=== PATIENT | male | born 1940 | race Caucasian/White ===

== ENCOUNTER 2024-01-19 19:08 | Emergency (ER) | payer MEDICARE, OTHER, SELFPAY ==
[2024-01-19 19:08] VITALS: BMI 27.6
[2024-01-19 19:18] VITALS: BP 150/77
[2024-01-19 19:35] LABS: % Basophils 0.8 % (0-2); % Eosinophils 3.9 % (0-6); % Immature Granulocytes 0.2 % (0-0.5); % Lymphocytes 28.4 % (20.5-51.1); % Monocytes 14.7 % (1.7-9.3); Absolute Basophils 0.1 10^3/uL (0-0.2); Absolute Eosinophils 0.2 10^3/uL (0-0.7); Absolute Lymphocytes 1.8 10^3/uL (1.2-3.4); Absolute Monocytes 0.9 10^3/uL (0.1-0.6); Absolute Neutrophils 3.2 10^3/uL (1.4-6.5); Hematocrit 43.5 % (39.0-52.0); Hemoglobin 14.6 g/dL (13.0-18.0); Mean Corp Hgb Conc. 33.6 g/dL (33.0-37.0); Mean Corpuscular Hgb 27.3 pg (27.0-31.0); Mean Corpuscular Volume 81.5 fL (80.0-94.0); Mean Platelet Volume 10.8 fL (7.4-10.4); Nucleated Red Blood Cells % 0 % (-); Platelet Count 153 10^3/uL (130-400); Red Blood Cell Count 5.34 10^6/uL (4.70-6.10); Red Cell Dist. Width 14.6 % (11.5-14.5); White Blood Cell Count 6.2 10^3/uL (4.8-10.8)
[2024-01-19 19:50] LABS: ALT (SGPT) 18 U/L (0-50); AST (SGOT) 25 U/L (17-59); Albumin 4.5 g/dl (3.5-5.0); Alkaline Phosphatase 62 U/L (38-126); Blood Urea Nitrogen 26 mg/dl (9-20); Calcium 9.3 mg/dl (8.4-10.2); Carbon Dioxide 27 mmol/L (22-30); Chloride 103 mmol/L (98-107); Glucose 87 mg/dl (70-99); Potassium 4.8 mmol/L (3.5-5.1); Sodium 136 mmol/L (135-145); Total Protein 7.1 g/dl (6.3-8.2); eGFR > 60.00
[2024-01-19 20:07] LABS: Troponin I < 0.012 ng/ml
--- NOTE | 2024-01-19 20:27 | ED.GENMED ---
History of Present Illness
General
Chief Complaint: Chest Pain
Time Seen by Provider: 01/19/24 20:27
History of Present Illness
History of Present Illness:
HPI: The patient presents with chest pain over the past 24 hours. It does not worsen with exertion. Is described as an ache. He never had a pressure or squeezing sensation. He was never diaphoretic. He reports no shortness of breath. He
initially was concerned that it could be his heart but more recently feels that is more likely related to his heartburn. He states with taking his pantoprazole. In the past he was recommended to increase the pantoprazole dosing but he did not.
His passenger relations representative is through [facility]. He had stents placed about 5 or 6 years ago and thinks he had chest discomfort at that time but this does not feel anything like he had at that time.
EXAM:
GENERAL: Well appearing in no distress, he appears very comfortable
HEENT: Moist oral mucosa
CARDIOVASCULAR: No murmurs, normal heart rate, regular rhythm, No chest wall tenderness
PULMONARY: No respiratory distress, breath sounds are clear and equal
ABDOMEN: Soft with no peritoneal signs, no tenderness
NEUROLOGIC: Excellent strength all extremities, no coordination deficits
PSYCHIATRIC: Appropriate mental status, normal insight and judgement
EXTREMITIES: Nontender, no edema, moves all extremities equally
SKIN: No rash, no lesions
TIME OF INITIAL ENCOUNTER: 8:40 PM
NUMBER AND COMPLEXITY OF PROBLEMS ADDRESSED AT THE ENCOUNTER
� Chronic conditions affecting care: CAD with coronary stents, GERD
� Acute Exacerbation and/or Progression of Chronic Illness: This is an acute problem
� Differential Diagnosis includes: GERD, noncardiac chest wall pain, ACS,
AMOUNT AND/OR COMPLEXITY OF DATA TO BE REVIEWED AND ANALYZED
� I performed an independent evaluation of and my interpretation is:
EKG: Sinus bradycardia 53, left axis deviation, no acute ST abnormality
CT:
X-rays:
Laboratory Studies: Troponin less than 0.012, CBC and chemistries unremarkable
Other:
� Review of other/old records: No old records available for review in [facility]
� Clinical information was obtained by an independent historian: I spoke to the son at bedside
� Prescriptions/Medications Considered but not given: I offered and considered Carafate for the possibly of reflux over the patient declines and states he will continue his PPI
� Further testing considered but not performed: Considered repeat troponin however the patient has no worsening symptoms today and symptoms started yesterday and has an unremarkable EKG.
RISK OF COMPLICATIONS AND/OR MORBIDITY OR MORTALITY OF PATIENT MANAGEMENT
� Social determinants of health affecting care: Lives at home
� Discussion with other providers:
� Escalation of care including admission/observation vs risk of discharge considered: The patient has been having 24 hours of symptoms which is not worsening with exertion. He has no pressure sensation. EKG and troponin
unremarkable. He has an appointment to see his passenger relations representative in approximately 10 days. This is through [facility].
Phy Exam
Physical Exam
Physical Exam:
See HPI
Scores
Heart Score for Chest Pain Patients
STEMI patient?: Not applicable
Course
Orders/Labs/Results
Orders:
Orders
01/19/24 19:10
Electrocardiogram (*1) Urgent
Reason for Study: Chest Pain
EKG- Treatment ONCE
01/19/24 19:23
Complete Blood Count/With Diff Urgent
Comprehensive Metabolic Panel Urgent
Troponin I Urgent
Abnormal Lab Results
01/19/24
19:23
RDW 14.6 H %
(11.5-14.5)
MPV 10.8 H fL
(7.4-10.4)
Absolute Monos (auto) 0.9 H 10^3/uL
(0.1-0.6)
Monocytes % 14.7 H %
(1.7-9.3)
BUN 26 H mg/dl
(9-20)
01/19/24 19:23
01/19/24 19:23
Vital Signs
Initial and Last Documented VS:
Initial Vital Signs
Temp Pulse Resp BP Pulse Ox
98.0 F 56 19 150/77 99
01/19/24 19:18 01/19/24 19:18 01/19/24 19:18 01/19/24 19:18 01/19/24 19:18
Last Documented Vital Signs
Temp Pulse Resp BP Pulse Ox
98.0 F 56 19 150/77 99
01/19/24 19:18 01/19/24 19:18 01/19/24 19:18 01/19/24 19:18 01/19/24 19:18
*Critical Care Note
Total Time (30-74mins, 75-104mins- exclusive of procedures): Not Applicable
ED Attending Note
-
Portions of this chart may have been created with voice recognition software.� Occasional wrong word or��sound alike� substitutions may have occurred due to the inherent limitations of voice recognition software.
Discharge Plan
Departure
Patient Disposition: Home (Routine Discharge)
Date of Disposition: 01/19/24
Time of Disposition: 20:42
Patient with high blood pressure during this ER visit?: Yes
Discharge Problem:
Chest pain
Instructions: Acid Reflux and GERD in Adults (DC), Chest Pain NON-[facility] Rag Inspector Follow Up
Activity Restrictions/Additional Instructions:
Follow-up with your passenger relations representative and [facility]. Return here if worse. Currently, we see no sign of heart attack based on EKG and cardiac blood work. Continue your stomach acid medicine.
Discharge Date and Time
Print Language: UKRAINIAN
[2024-01-19 20:47] VITALS: BP 156/98
== END 2024-01-19 21:02 | disposition home or self-care (01) ==
LOC: EMR 19:08
PROVIDERS: Emergency Medicine; EMERGENCY PHYSICIAN Emergency Medicine; FAMILY PHYSICIAN Internal Medicine
DX: R07.89 Other chest pain (principal); R03.0 Elevated blood-pressure reading, without diagnosis of hypertension; Z95.5 Presence of coronary angioplasty implant and graft
CPT/HCPCS: 99283; 80053; 84484; 85025; 93005